=== PATIENT | female | born 1945 | race Caucasian/White ===

== ENCOUNTER → 2019-01-24 | Outpatient (CLI) | payer MEDICARE, SELFPAY ==
[~2019-01-24] MED LIST: ALBU90OI INH; ALPR.5 PO; AMOCLA875 PO; Acidophilus1 EAC2 PO; Amox Tr-K Clv1 EAC1 PO; Aspir 8181 MG PO; Aspir-Trin325 MG PO; BUDE6HFA INH; CALCA500CH PO; COMBIVENT RESPIM4 GM IH; FERROUS SULFATE PO; FLUSAL2505 INH; Ferrous Sulfat325 M2 PO; METF500C PO; METH1TAB8 PO; MONT10T PO; NAPR220 PO; NASACORT10.8 ML NS; NITR.4SL SL; PANT40; RABE20 PO; STOOL SOFTENER1 EAC1 PO; TRIM100 PO; TUDORZA PRESS400 MCG IH; VENL150ER PO; VITAMIN D2400 UNIT PO; Zocor20 MG PO
[2019-01-24 14:37] LABS: Source, Urine Voided
[2019-01-24 19:15] LABS: Bilirubin, Urine Neg (Neg); Blood, Urine 2+ (Neg); Glucose Qualitative, Urine Neg (Neg); Ketones, Urine Neg (Neg); Leukocyte Esterase, Urine 1+ (Neg); Nitrite, Urine Pos (Neg); Protein, Urine 1+ (Neg); Urobilinogen, Urine NORM (Normal)
[2019-01-24 19:16] LABS: Appearance, Urine Hazy (Clear); Color, Urine Yellow (P-Yellow)
[2019-01-24 19:22] LABS: Bacteria Many /hpf; Red Blood Cells, Urine 0-2 /hpf (0-2); Squamous Epithelial Cells Few /hpf (Few)
== END | disposition home or self-care (01) ==
LOC: LAB SHORT 14:35 → LAB 14:35
PROVIDERS: Nurse Practitioner Family
DX: R30.0 Dysuria (principal)
CPT/HCPCS: 81001; 87077; 87086; 87186

== ENCOUNTER → 2019-02-28 | Outpatient (CLI) | payer MEDICARE, SELFPAY | END | disposition home or self-care (01) | LOC: LAB 15:48 → LAB SHORT 15:48 | DX: R30.0 Dysuria (principal) | CPT/HCPCS: 87077; 87086; 87186 ==

== ENCOUNTER → 2019-07-13 | Outpatient (CLI) | payer MEDICARE, SELFPAY ==
[2019-07-13 09:14] LABS: Source, Urine Clean Catch
[2019-07-13 11:15] LABS: Bilirubin, Urine Neg (Neg); Blood, Urine 2+ (Neg); Glucose Qualitative, Urine Neg (Neg); Ketones, Urine Neg (Neg); Leukocyte Esterase, Urine Neg (Neg); Nitrite, Urine Pos (Neg); Protein, Urine Neg (Neg); Urobilinogen, Urine NORM (Normal)
[2019-07-13 11:23] LABS: Appearance, Urine Clear (Clear); Bacteria Many /hpf; Color, Urine Yellow (P-Yellow); Squamous Epithelial Cells Few /hpf (Few)
== END | disposition home or self-care (01) ==
LOC: LAB 09:12 → LAB SHORT 09:12 → LAB FUT 07-12 14:05
PROVIDERS: Nurse Practitioner Family
DX: R10.9 Unspecified abdominal pain (principal)
CPT/HCPCS: 81001; 87077; 87086; 87186

== ENCOUNTER → 2019-09-19 | Outpatient (CLI) | payer MEDICARE | END | disposition home or self-care (01) | LOC: LAB SHORT 11:42 → LAB 11:42 → LAB FUT 09-16 16:25 | DX: R30.0 Dysuria (principal) | CPT/HCPCS: 87077; 87086; 87186 ==

== ENCOUNTER → 2020-03-17 | Outpatient (CLI) | payer MEDICARE | END | disposition home or self-care (01) | LOC: LAB EV 14:45 → LAB SHORT 14:45 | DX: N39.0 Urinary tract infection, site not specified (principal) | CPT/HCPCS: 87077; 87086; 87186 ==

== ENCOUNTER → 2020-09-24 | Outpatient (CLI) | payer MEDICARE ==
[~2020-09-24] MED LIST changes: -CALCA500CH PO; +HYDR1TAB94 PO; +ONDA4ODT MM; +TUMS500 MG PO
[2020-09-24 16:03] LABS: Source, Urine Clean Catch
[2020-09-24 19:13] LABS: Appearance, Urine Clear (Clear); Bilirubin, Urine Neg (Neg); Blood, Urine Neg (Neg); Color, Urine Yellow (P-Yellow); Glucose Qualitative, Urine Neg (Neg); Ketones, Urine Neg (Neg); Leukocyte Esterase, Urine Neg (Neg); Nitrite, Urine Neg (Neg); Protein, Urine Neg (Neg); Urobilinogen, Urine NORM (Normal)
== END | disposition home or self-care (01) ==
LOC: LAB SHORT 16:00 → LAB 16:00
PROVIDERS: Nurse Practitioner Family
DX: R82.998 Other abnormal findings in urine (principal)
CPT/HCPCS: 81003

== ENCOUNTER 2020-10-24 07:29 | Day surgery (SDC) | payer MEDICARE ==
[~2020-10-24] VITALS: Ht 200.7 cm; Wt 100.6 kg
[~2020-10-24 07:29] MED LIST changes: -HYDR1TAB94 PO; -ONDA4ODT MM
--- NOTE | 2020-10-24 10:28 | NUR ---
10/24/20 1028 Luther Henry RACHEL CATH PLACED PER SARAH ANGEL
--- NOTE | 2020-10-24 14:50 | NUR ---
PT ARRIVED TO ROOM 232 FROM PACU S/P LAP HIATAL HERNIA REPAIR PT REPORTS PAIN TO HER THROAT AND HER SHOULERS BILAT DENIES PAIN AT THIS TIME TO THE ABD PT HAS 5 GAUZE WITH TEGADERM C/D/I PT IS ON 2 L NC LS CLEAR BUT DIM PT DROWSY PT HAS BLANKET TO ABD TO SPLINT IS GIVEN
--- NOTE | 2020-10-24 16:51 | NUR ---
pt laying on her side
--- NOTE | 2020-10-24 16:53 | NUR ---
dr hayden by to see pt
--- NOTE | 2020-10-24 17:57 | NUR ---
pt ok to have thickened liquids only at 1900 if no n/v per dr hayden
--- NOTE | 2020-10-25 05:12 | NUR ---
SHIFT SUMMARY: PARIS IS A&OX4. VSS, NO ACUTE EVENTS OVERNIGHT. SHE IS INDEPENDENT TO THE BATHROOM. DRESSINGS TO ABDOMEN C/D&I. IV PATENT, LR INFUSING. SHE REPORTS ADEQUATE PAIN CONTROL WITH 25 MCG OF FENTANYL. SHE REPORTS IMPROVEMENT IN THE SHOULDER PAIN. SHE IS LYING IN BED WITH HER CALL LIGHT IN REACH. WILL REPORT TO DAY SHIFT RN.
--- NOTE | 2020-10-25 16:59 | NUR ---
SHIFT SUMMARY POD 1 LAP HERNIA REPAIR PT AA0X4, PT REPORTS SOME DIFFICULTY WITH SWALLOWING PT REPORTS NORMAL FOR HER. DIET ADVANCED TO FULL LIQUID FOR DINNER. PT DENIES NAUSEA AND REPORTS PAIN TOLERABLE TODAY. MEDICATED PER EMAR X1. PT UP TO BATHROOM IND IN ROOM, MOVING FREQUENTLY IN ROOM.
[2020-10-25] MEDS ORDERED: ONDA4ODT MM (20:02)
[2020-10-25] MEDS ORDERED: HYDR1TAB94 PO (20:03)
--- NOTE | 2020-10-25 20:05 | NUR ---
DISCUSSED WITH PARIS PAIN CONTROL, MADE HER AWARE THAT IT MAY BE IMPOSSIBLE FOR HER TO FILL THE PRESCRIPTIONS FOR PAIN AND NAUSEA CONTROL UNTIL TOMORROW. SHE REPORTS THAT HER PAIN HAS BEEN TOLERABLE ALL DAY, AND HAS NOT HAD A DOSE OF NARCOTIC PAIN MEDICATION SINCE APPROX [phone] TODAY. THIS WAS VERIFIED ON THE EMAR. SHE STATED THAT SHE FEELS TYLENOL WILL WORK TO KEEP HER PAIN TOLERABLE. SHE DID TOLERATE THE DINNER TRAY WITH FULL LIQUIDS AND HAS NOT HAD ANY NAUSEA OR VOMITING. SHE WAS COMPLAINING OF A HEADACHE PRIOR TO EATING AND STATES THAT IT WAS RELIEVED AFTER DINNER. SHE IS INDEPENDENT IN THE ROOM. SHE HAS CONTACTED HER DAUGHTER FOR A RIDE HOME AND STATES THAT HER DAUGHTER WILL BE STAYING THE NIGHT WITH HER TONIGHT.
--- NOTE | 2020-10-25 20:15 | NUR ---
Discharge instructions reviewed with patient. Patient verbalizes understanding. Copy given to patient to take home. Dressing to procedure site clean, dry, intact with no visible drainage, swelling, or erythema noted. Patient States Post-Procedure ride home has been arranged. Discharged via wheelchair to private car for ride home.
== END 2020-10-25 20:31 | disposition home or self-care (01) ==
LOC: ORSCMMR 07:29 → SURS 14:43
PROVIDERS: Surgery
PROC: 0BQT4ZZ Repair Diaphragm, Percutaneous Endoscopic Approach (ICD-10-PCS; principal; 2020-10-24 09:00)
PROC: 0DV44ZZ Restriction of Esophagogastric Junction, Percutaneous Endoscopic Approach (ICD-10-PCS; principal; 2020-10-24 09:00)
DX: K44.9 Diaphragmatic hernia without obstruction or gangrene (principal); K22.0 Achalasia of cardia; J45.909 Unspecified asthma, uncomplicated; Z87.891 Personal history of nicotine dependence; E11.9 Type 2 diabetes mellitus without complications; E66.9 Obesity, unspecified; Z68.35 Body mass index [BMI] 35.0-35.9, adult; Z79.899 Other long term (current) drug therapy; Z79.82 Long term (current) use of aspirin
CPT/HCPCS: 82947; A9270; J0690; J1100; J1650; J2250; J2405; J2704; J3010; J7120

== ENCOUNTER → 2021-04-29 | Outpatient (CLI) | payer MEDICARE ==
[~2021-04-29] MED LIST changes: +HYDR1TAB94 PO; +ONDA4ODT MM
[2021-04-29 14:22] LABS: Source, Urine Voided
[2021-04-29 19:03] LABS: Appearance, Urine Hazy (Clear); Bilirubin, Urine Neg (Neg); Blood, Urine 1+ (Neg); Color, Urine Yellow (P-Yellow); Glucose Qualitative, Urine Neg (Neg); Ketones, Urine Neg (Neg); Leukocyte Esterase, Urine 1+ (Neg); Nitrite, Urine Pos (Neg); Protein, Urine 1+ (Neg); Urobilinogen, Urine NORM (Normal)
[2021-04-29 19:19] LABS: Calcium Oxalate Crystals Mod /hpf
[2021-04-29 19:20] LABS: Bacteria Many /hpf; Red Blood Cells, Urine Rare /hpf (0-2); Squamous Epithelial Cells Few /hpf (Few)
== END | disposition home or self-care (01) ==
LOC: LAB SHORT 14:18 → LAB 14:18
PROVIDERS: Nurse Practitioner Family
DX: R30.0 Dysuria (principal)
CPT/HCPCS: 81001; 87077; 87086; 87186

== ENCOUNTER → 2021-05-20 | Outpatient (CLI) | payer MEDICARE ==
[2021-05-20 13:45] LABS: Source, Urine Voided
[2021-05-20 19:19] LABS: Appearance, Urine Turbid (Clear); Bilirubin, Urine Neg (Neg); Blood, Urine 2+ (Neg); Color, Urine Yellow (P-Yellow); Glucose Qualitative, Urine Neg (Neg); Ketones, Urine Neg (Neg); Leukocyte Esterase, Urine Neg (Neg); Nitrite, Urine Neg (Neg); Protein, Urine 1+ (Neg); Specific Gravity, Urine 1.025 (1.003-1.022); Urobilinogen, Urine NORM (Normal)
[2021-05-20 19:38] LABS: Bacteria Few /hpf; Calcium Oxalate Crystals Few /hpf; Red Blood Cells, Urine 0-2 /hpf (0-2); Squamous Epithelial Cells Few /hpf (Few); White Blood Cells, Urine Rare /hpf (0-5)
== END | disposition home or self-care (01) ==
LOC: LAB 13:42 → LAB SHORT 13:42
PROVIDERS: Nurse Practitioner Family
DX: B96.20 Unspecified Escherichia coli [E. coli] as the cause of diseases classified elsewhere (principal)
CPT/HCPCS: 81001

== ENCOUNTER → 2023-03-25 | Outpatient (CLI) | payer MEDICARE ==
[2023-03-25 13:21] LABS: BASOPHILS ABSOLUTE AUTO 0.08 K/mm3 (0.00-0.23); BASOPHILS PERCENT AUTO 1 % (0-2); EOSINOPHILS ABSOLUTE AUTO 0.19 K/mm3 (0.00-0.68); EOSINOPHILS PERCENT AUTO 3 % (0-6); Hematocrit 39.6 % (33.0-51.0); Hemoglobin 13.3 g/dL (11.5-16.0); IMMATURE GRAN ABSOLUTE AUTO 0.02 K/mm3 (0.00-0.10); IMMATURE GRAN PERCENT AUTO 0 % (0-1); LYMPHOCYTES ABSOLUTE AUTO 2.06 K/mm3 (0.84-5.20); LYMPHOCYTES PERCENT AUTO 29 % (21-46); MONOCYTES ABSOLUTE AUTO 0.67 K/mm3 (0.16-1.47); MONOCYTES PERCENT AUTO 9 % (4-13); Mean Corpuscular HGB 28.1 pg (26.0-34.0); Mean Corpuscular HGB Conc 33.6 g/dL (31.5-36.5); Mean Corpuscular Volume 84 fL (80-100); Mean Platelet Volume 11.3 fL (9.1-12.4); NEUTROPHILS ABSOLUTE AUTO 4.08 K/mm3 (1.96-9.15); NEUTROPHILS PERCENT AUTO 58 % (41-73); Platelet Count 271 K/mm3 (150-400); RDW Coefficient Variation 13.1 % (11.7-14.2); RDW Standard Deviation 39.8 fL (35.1-46.3); Red Blood Cell Count 4.74 M/mm3 (3.80-5.20)
[2023-03-25 16:16] LABS: Alanine Aminotransfer (ALT/SGP 25 U/L (12-78); Albumin/Globulin Ratio 1.2 (0.8-1.8); Alk Phos 74 U/L (50-136); Anion Gap 5 mmol/L (6-16); Aspartate Aminotrans (AST/SGOT 19 U/L (12-37); Bilirubin, Total 0.6 mg/dL (0.1-1.0); Blood Urea Nitrogen 15 mg/dL (8-24); Bun/Creatinine Ratio 19.4 (12.0-20.0); CHOL/HDL RATIO 4.1; CO2, Blood 24 mmol/L (21-32); Chloride, Blood 110 mmol/L (98-108); Cholesterol 148 mg/dL (50-200); Creatinine, Blood 0.77 mg/dL (0.40-1.00); Globulin, Blood 3.3 g/dL (2.2-4.0); Glomerular Filtration Rate 79 (60-); Glucose, Blood 140 mg/dL (70-99); HDL Cholesterol 36 mg/dL (>39); LDL/HDL RATIO 2.6; Low Density Lipoprotein Chol 94 mg/dL (0-110); Potassium, Blood 4.5 mmol/L (3.5-5.5); Sodium, Blood 139 mmol/L (136-145); Total Protein, Blood 7.3 g/dL (6.4-8.2); Triglycerides 92 mg/dL (30-160); Very Low Density Lipoprot Chol 18 mg/dL (6-32)
== END | disposition home or self-care (01) ==
LOC: LAB SHORT 10:20 → LAB 10:20
PROVIDERS: Nurse Practitioner Family
DX: E11.9 Type 2 diabetes mellitus without complications (principal)
CPT/HCPCS: 80053; 80061; 81001; 82043; 82570; 83036; 85025; 87086